=== PATIENT | female | born 1975 | race Caucasian/White ===

== ENCOUNTER 2024-02-16 09:02 | Outpatient (AMB) | payer BC, SELFPAY ==
--- NOTE | 2024-02-16 09:10 | MHC.OFFWIV ---
Intake Vital Signs 02/16/24 09:11 Height 5 ft 2 in Weight 154 lb BMI 28.2 BP 120/80 Blood Pressure Location Lt brachial Position Sitting Pulse 108 H Pulse Source Pulse Oximeter Temp 97.7 F Temp Source Temporal Artery Scan Pulse Oximetry (%) 97 Oxygen Delivery Method Room Air Intake Visit Reasons: [employer] Ear infection Intake Note: pt is here today for lft ear infection started 1 week ago Patient Tobacco Use Status: Never used Tobacco Allergies sulfamethoxazole [From Bactrim] Allergy (Mild, Verified 02/16/24 09:14) rash trimethoprim [From Bactrim] Allergy (Mild, Verified 02/16/24 09:14) rash Do you need a note to return to daycare/school/sports/work: No HPI [employer] Ear infection HPI Details This is a 48 year old female patient who presents today with a 1 week history of left ear pain. Denies any other sick symptoms however reports she nearly always has a post-nasal drip. Denies fever, chills, or known exposure to sick contacts. FOR[facility]LY [facility], [facility] Social History Patient Tobacco Use Status: Never used Tobacco Review of Systems Const All systems reviewed & are unremarkable except as noted in HPI and below Physical Exam Vital Signs: Last Vital Signs Temp 97.7 F 02/16/24 09:11 Pulse 108 H 02/16/24 09:11 BP 120/80 02/16/24 09:11 Pulse Ox 97 02/16/24 09:11 Oxygen Delivery Method Room Air 02/16/24 09:11 BMI result Body Mass Index 28.2 Const General: cooperative, healthy appearing and no acute distress HEENT Head: Yes normal to inspection Ears: hearing grossly normal bilaterally and TM abnormal (bilateral purulent effusion, erythema, bulging L>R TM) General nose exam: Normal external nose present and Normal nasal mucous membranes and turbinates present Throat: Yes posterior oropharynx normal Neck Neck: Yes no lymphadenopathy Resp Effort & Inspection: normal respiratory effort Auscultation: clear to auscultation bilaterally Skin General skin exam: no rashes or lesions noted Extrem General: Yes no clubbing, cyanosis or edema Psych Appearance: grossly normal Mental Status: mental status grossly normal Speech and movement: Normal speech and movement present Assessment & Plan Assessment & Plan (1) Bilateral otitis media with effusion: Code(s): H65.93 - Unspecified nonsuppurative otitis media, bilateral Plan: Will start on Augmentin 10 days. Reviewed indications, use, possible s/e of medication. Advised Tylenol/Motrin as needed for any fever or discomfort. If she does not improve with treatment she can return to the clinic or see PCP for further evaluation. She verbalizes understanding and agrees to plan. Medications: New amoxicillin-pot clavulanate 875-125 mg 1 tab PO BID 10 days 20 tabs 0RF H65.93 - Unspecified nonsuppurative otitis media, bilateral Coding Level of Care Code Est Pt Level 3 (27768) Diagnoses Bilateral otitis media with effusion H65.93
[2024-02-16 09:11] VITALS: BP 120/80; PULSE 108; TEMP 36.5; O2SAT 97; BMI 28.2
== END 2024-02-16 09:39 | disposition home or self-care (01) ==
PROVIDERS: PCP Internal Medicine; Visit Provider Nurse Practitioner Family
DX: H65.93 Unspecified nonsuppurative otitis media, bilateral (principal)
CPT/HCPCS: 99213

== ENCOUNTER 2025-02-26 10:28 | Outpatient (AMB) | payer BC, SELFPAY ==
--- NOTE | 2025-02-26 10:56 | MHC.OFFWIV ---
Intake Vital Signs 02/26/25 10:57 Weight 154 lb BP 112/70 Blood Pressure Location Rt brachial Position Sitting Pulse 75 Pulse Source Pulse Oximeter Pulse Oximetry (%) 98 Oxygen Delivery Method Room Air Intake Visit Reasons: EP severe pain on RT hand Intake Note: Patient here for right hand pain that has been present for 2 days. Patient Tobacco Use Status: Never used Tobacco Allergies sulfamethoxazole [From Bactrim] Allergy (Mild, Verified 02/26/25 10:59) rash trimethoprim [From Bactrim] Allergy (Mild, Verified 02/26/25 10:59) rash Do you need a note to return to daycare/school/sports/work: Yes HPI HPI Comments History of Present Illness Details History of Present Illness - The patient is a 49-year-old female presenting with excruciating pain in the right wrist, extending to the fingertips, which began on 2 days ago suddenly without any known injury. - The patient describes the pain as intense with associated numbness, tingling, and nighttime awakening, mentioning past incidents with similar symptoms around a few years ago. - Cold fingertips were noted with severe numbness and tingling, with no color change observable. - Pain intensified with specific thumb movements, suggesting possible De Quervain's Tenosynovitis alongside existing carpal tunnel syndrome. The patient previously underwent normal nerve conduction studies. 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 Physical Exam General: Cooperative, healthy appearing, comfortable, no acute distress and well developed Orientation: Patient oriented x3 Limitations: No limitations Head: Normal to inspection Ears: Hearing grossly normal bilaterally Nose: Normal External nose present Face and sinus: Normal facial exam Eyes: Appearance normal, both eyes and all related structures Neck: Normal visual inspection and Yes full ROM Respiratory: Normal respiratory effort and able to speak in complete sentences. Skin: No rashes or lesions noted Neuro: Patient oriented x3 Extremities: Right wrist appears slightly very slight swollen, 3/5 outbound telemarketer strength right vs 4/5 left outbound telemarketer strength Full range of motion wrist, hand and fingers, NVI. right wrist: negative Tinels, Positive Phalen and positive Finklesteins FOR[facility]LY [facility] Social History Patient Tobacco Use Status: Never used Tobacco Review of Systems Const All systems reviewed & are unremarkable except as noted in HPI and below Physical Exam Vital Signs: Last Vital Signs Pulse 75 02/26/25 10:57 BP 112/70 02/26/25 10:57 Pulse Ox 98 02/26/25 10:57 Oxygen Delivery Method Room Air 02/26/25 10:57 Assessment & Plan Assessment & Plan (1) De Quervain's tenosynovitis, right: Code(s): M65.4 - Radial styloid tenosynovitis [de Quervain] Plan: DQT vs carpal tunnel however got nerve testing done a few years ago and it was negative. The patient is advised to utilize a wrist brace which we gave her today, particularly one that supports the thumb, and to follow an anti-inflammatory regimen using Aleve naproxen every 12 hours for the weekend to address the right wrist pain suggestive of carpal tunnel syndrome vs De Quervain's Tenosynovitis. It is vital to maintain [id number] exercises intermittently to avoid joint stiffness, considering the repetitive nature of her work. These interventions aim to limit exacerbation and prioritize rest, with follow-up plans for the PCP if symptoms persist or escalate. The potential for joint stiffness due to premenopausal changes is noted, emphasizing the importance of adherence to the treatment and follow-up recommendations. Patient was informed and verbally consented to the use of an ambient scribe for clinic note documentation during this visit. Coding Level of Care Code New Pt Level 3 (25988) Diagnoses De Quervain's tenosynovitis, right M65.4
[2025-02-26 10:57] VITALS: BP 112/70; PULSE 75; O2SAT 98
== END 2025-02-26 11:26 | disposition home or self-care (01) ==
PROVIDERS: PCP Internal Medicine; Visit Provider Physician Assistant
DX: M65.4 Radial styloid tenosynovitis [de Quervain] (principal)